=== PATIENT | female | born 1970 | race Caucasian/White ===

== ENCOUNTER → 2017-07-25 | Outpatient (CLI) | payer OTHER | LOC: M.ULTRA 16:00 | DX: M79.604 Pain in right leg (principal); M79.89 Other specified soft tissue disorders ==

== ENCOUNTER → 2017-12-10 | Outpatient (CLI) | payer OTHER | LOC: M.ULTRA 11:09 | DX: K76.0 Fatty (change of) liver, not elsewhere classified (principal) ==

== ENCOUNTER → 2020-02-16 | Outpatient (CLI) | payer OTHER ==
--- NOTE | 2020-02-16 14:06 | 2DMMODE ---
[place] [address] 2 D/M-MODE ECHOCARDIOGRAM Name: CALEB CRESPO Room: [facility]#: [id number] Admission: 02/16/20 Attend Phys: Bob Carmona DO Discharge: Date of : 68 Date of Service: 02/16/20 1405 Report #: [id number] THIS REPORT FOR: cc: Audrey Ball Maggie M. DO Blick, David R. MD [facility] ~ APPROVED REPORT Study performed: 02/16/2020 13:03:31 EXAM: Comprehensive 2D, Doppler, and color-flow Echocardiogram Patient Location: Out-Patient BSA: 1.93 HR: 78 bpm BP: 128/90 mmHg Other Information Study Quality: Good Indications Chest Pain 2D Dimensions IVSd: 10.51 (7-11mm) LVOT Diam: 18.91 (18-24mm) LVDd: 39.36 mm PWd: 9.66 (7-11mm) Ascending Ao: 27.24 (22-36mm) LVDs: 24.21 (25-40mm) Aortic Root: 25.22 mm Volumes Left Atrial Volume (Systole) LA ESV Index: 11.20 mL/m2 Aortic Valve AoV Peak Rao.: 1.28 m/s AO Peak Gr.: 6.59 mmHg LVOT Max P.16 mmHg AO Mean Gr.: 3.63 mmHg LVOT Mean P.06 mmHg LVOT Max V: 0.74 m/s AO V2 VTI: 24.39 cm LVOT Mean V: 0.47 m/s NANCY (VTI): 1.80 cm2 LVOT V1 VTI: 15.64 cm Mitral Valve E/A Ratio: 0.81 [place] [address] 2 D/M-MODE ECHOCARDIOGRAM Name: CALEB CRESPO Room: [facility]#: [id number] Admission: 02/16/20 Attend Phys: Bob Carmona DO Discharge: Date of : 68 Date of Service: 02/16/20 1405 Report #: [id number] MV Decel. Time: 163.68 ms MV E Max Rao.: 0.70 m/s MV PHT: 47.47 ms MVA (PHT): 4.63 cm2 TDI E/Lateral E': 5.83 E/Medial E': 6.36 Medial E' Rao.: 0.11 m/s Lateral E' Rao.: 0.12 m/s Pulmonary Valve PV Peak Rao.: 0.75 m/s PV Peak Gr.: 2.28 mmHg Left Ventricle The left ventricle is normal size. There is normal LV segmental wall motion. There is normal left ventricular wall thickness. Left ventricular systolic function is normal. The left ventricular ejection fraction is within the normal range. LVEF is 55-60%. Grade I - abnormal relaxation pattern. Right Ventricle The right ventricle is normal size. The right ventricular systolic function is normal. Atria The left atrium size is normal. The right atrium size is normal. Aortic Valve The aortic valve is normal in structure. No aortic regurgitation is present. There is no aortic valvular stenosis. Mitral Valve The mitral valve is normal in structure. There is trace mitral valve regurgitation noted. No evidence of mitral valve stenosis. Tricuspid Valve The tricuspid valve is normal in structure. There is trace tricuspid valve regurgitation noted. Pulmonic Valve The pulmonary valve is normal in structure. Mild pulmonic regurgitation. Great Vessels The aortic root is normal in size. IVC [place] [address] 2 D/M-MODE ECHOCARDIOGRAM Name: CALEB CRESPO Room: [facility]#: [id number] Admission: 02/16/20 Attend Phys: Bob Carmona DO Discharge: Date of : 68 Date of Service: 02/16/20 1405 Report #: [id number] collapses >50% with inspiration. Pericardium There is no pericardial effusion. <Conclusion> Left ventricular systolic function is normal. The left ventricular ejection fraction is within the normal range. <ELECTRONICALLY SIGNED> By: Jose aRul Parada MD, FACC 02/16/20 1405 04 04 Jose Raul Parada MD, [facility] /INF
--- NOTE | 2020-02-16 17:29 | CARDNUC ---
[place] [address] CARDIAC NUCLEAR IMAGING REPORT Name: CALEB CRESPO Room: [facility]#: [id number] Admission: 02/16/20 Attend Phys: Bob Carmona DO Discharge: Date of : 68 Date of Service: 02/16/20 1728 Report #: [id number] THIS REPORT FOR: cc: Audrey Ball Maggie M. DO Liston, Michael J. MD [facility] ~ APPROVED REPORT Study performed: 02/16/2020 16:23:21 Exam: Nuclear Stress Test Patient Location: Out-Patient Stress Tech: Kassidy Martinez Stress Nurse: Sandra Mccrary R.N. NM Tech:SANJAY Burroughs Ht: 5 ft 6 in Wt: 185 lbs BSA: 1.93 m2 BMI: 29.85 Medical History Medical History: Chest heaviness, dyspnea, s/p covid 10/31, fatigue, headaches, lightheadedness, HTN, 2nd hand smoke exposure. Medications: Losartan, HCTZ. Allergies: Augmentin, Lisinopril. Cardiac Risk Factors: FHX of CAD, HTN, dyspnea, chest pain/heaviness. Previous Cardiac Procedures: None Pretest Chest Pain Characteristics: No chest pain Exercise History: Physically active Physical Disabilities: None Meds Held (24 hrs): None Stress Test Details Stress Test: Exercise stress testing was performed using a Luciano protocol. HR Resting HR: 90 bpm Max Heart Rate (APMHR): 170 bpm Max HR Achieved: 169 bpm Target HR (85% APMHR): 144 bpm % of APMHR: 99 Recovery HR: 105 bpm BP Resting BP: 123/80 [place] [address] CARDIAC NUCLEAR IMAGING REPORT Name: CALEB CRESPO Room: [facility]#: [id number] Admission: 02/16/20 Attend Phys: Bob Carmona DO Discharge: Date of : 68 Date of Service: 02/16/20 1728 Report #: [id number] Max BP: 192/79 mmHg ECG Resting ECG: Sinus Rhythm Stress ECG: Sinus Tachycardia ST Change: None Arrhythmia: None Recovery ECG: Sinus Rhythm Recovery ST Change: None Recovery Arrhythmia: None Clinical Reason for Termination: Completed protocol, Maximal effort, Patient Request. Stress Symptoms: Dyspnea, Leg Fatigue, Dizziness. Exercise duration: 9 min 44 sec Exercise capacity: 11.36 METs Overall Exercise Capacity for Age: Superior The patient tolerated standard Luciano protocol exercise without significant cardiac symptoms. Exercise was stopped due to attainment of target heart rate. Nurse Comments A 49 year old female presented for a Treadmill Nuclear Stress Test r/t chest heaviness, dyspnea, increased fatigue and lightheadedness. Treadmill tolerated to stage 3. Recovery unremarkable. Patient was escorted to Nuclear Medicine for imaging. Patient was stable and stated she felt good at that time. Stress ECG Conclusion The baseline twelve-lead EKG shows sinus rhythm without significant ST segment or T wave abnormality. EKGs obtained during and post exercise show sinus rhythm and sinus tachycardia with no significant ST segment or T wave changes when compared to baseline. There were no stress-induced arrhythmias. NM EXAM: Myocardial Perfusion REST/STRESS Imaging Protocol: Rest Tc-99m/Stress Tc-99m 1 day Resting Data Rest SPECT myocardial perfusion imaging was performed in supine position 30 minutes following the intravenous injection of 10.1 mCi of Tc-99m Sestamibi. Time of rest injection: 1415 Date: 02/16/2020 The images were gated to evaluate regional wall motion and calculate left [place] [address] CARDIAC NUCLEAR IMAGING REPORT Name: CALEB CRESPO Room: [facility]#: [id number] Admission: 02/16/20 Attend Phys: Bob Carmona DO Discharge: Date of : 68 Date of Service: 02/16/20 1728 Report #: [id number] Administration Route: IV Administration Site: Left AC Exercise Stress At peak stress, the patient was injected intravenously with 29.0mCi of Tc-99m Sestamibi. Time of stress injection: 1620 Date: 02/16/2020 Administration Route: IV Administration Site: Left AC Gated Stress SPECT was performed 30 minutes after stress injection. The images were gated to evaluate regional wall motion and calculate left ventricular ejection fraction. Prone imaging was performed. Study Quality Study: Good Artifact: Mild Breast artifact Study Data At rest, the left ventricular ejection fraction was 79%.. Post stress, the left ventricular ejection was 80%.. TID = 1.02. Perfusion Very mild photopenia of the anterior wall on resting images consistent with breast attenuation artifact. Post-rest images show uniform uptake of the radioisotope throughout the myocardium. Wall Motion Normal left ventricular wall motion. Nuclear Conclusion ECG Findings: negative for ischemia Clinical Findings: negative for ischemia Nuclear Findings: negative for ischemia Exercise Capacity: normal Left Ventricular Function: normal Risk Study: low Perfusion images show no defect to suggest infarct or ischemia. Left ventricular systolic function appears normal on gated studies. This is a low risk study. <Conclusion> The baseline twelve-lead EKG shows sinus rhythm without significant ST segment or T wave abnormality. [place] [address] CARDIAC NUCLEAR IMAGING REPORT Name: CALEB CRESPO Room: [facility]#: [id number] Admission: 02/16/20 Attend Phys: Bob Carmona DO Discharge: Date of : 68 Date of Service: 02/16/20 1728 Report #: [id number] exercise show sinus rhythm and sinus tachycardia with no significant ST segment or T wave changes when compared to baseline. There were no stress-induced arrhythmias. <ELECTRONICALLY SIGNED> By: Leland Mckeon MD, FACC 02/16/201727 27 27 Leland Mckeon MD, FACC /INF
== END ==
LOC: M.NUC 12-03 16:42 → M.CRD 12-13 09:00 → M.NUC 12-13 13:00 → M.CRD 12:48 → M.NUC 14:00 → M.CRD 02-22 14:00
PROVIDERS: ATTEND Family Medicine
DX: I08.8 Other rheumatic multiple valve diseases (principal); R20.2 Paresthesia of skin